=== PATIENT | female | born 1970 | race Caucasian/White ===

== ENCOUNTER 2021-06-01 13:53 | Emergency (ER) | payer OTHER ==
[~2021-06-01] VITALS: Ht 172.7 cm; Wt 103.9 kg
--- NOTE | 2021-06-01 13:53 | NUR ---
PT BIB SELF C/O LOWER BACK PAIN. PT IS AAOX4, NOT IN RESPIRATORY DISTRESS, V/S STABLE, KEPT RESTED AND COMFORTABLE. WILL CONTINUE TO MONITOR.
--- NOTE | 2021-06-01 14:14 | NUR ---
AT BEDSIDE FOR EVAL.
--- NOTE | 2021-06-01 14:30 | NUR ---
URINE SPECIMEN COLLECTED AND SENT TO LAB.
--- NOTE | 2021-06-01 14:35 | NUR ---
PT IV LINE ESTABLISHED BLOOD DRAWN AND SENT TO LAB.
[2021-06-01 14:47] LABS: BASOPHILS # (AUTO) 0.1 K/uL (0.0-0.2); BASOPHILS % (AUTO) 1.1 % (0.0-2.0); EOSINOPHILS % (AUTO) 1.1 % (0.0-6.0); HEMATOCRIT 38 % (33-45); HEMOGLOBIN 12.8 g/dL (11.5-14.8); LYMPHOCYTES # (AUTO) 1.8 K/uL (0.8-4.8); LYMPHOCYTES % (AUTO) 27.8 % (20.0-44.0); MEAN CORPUSCULAR HGB CONC 34 g/dl (31.0-36.0); MEAN CORPUSCULAR VOLUME 94 fL (82-100); MONOCYTES # (AUTO) 0.5 K/uL (0.1-1.30); MONOCYTES % (AUTO) 7.1 % (2.0-12.0); NEUTROPHILS # (AUTO) 4.1 K/uL (1.8-8.9); NEUTROPHILS % (AUTO) 62.9 % (43.0-81.0); PLATELET COUNT (AUTO) 299 K/uL (150-450); RED BLOOD CELL COUNT(AUTO) 4.02 MIL/uL (4.0-5.2); WHITE BLOOD COUNT (AUTO) 6.5 K/uL (4.3-11.0)
[2021-06-01 14:53] LABS: BILIRUBIN,URINE NEGATIVE (NEGATIVE); COLOR,URINE YELLOW (YELLOW); LEUKOCYTE ESTERASE ,URINE NEGATIVE (NEGATIVE); NITRITE, URINE NEGATIVE (NEGATIVE); PH,URINE 5.5 (5.0-8.0); PROTEIN,URINE NEGATIVE (NEGATIVE); UGLUCOSE NEGATIVE (NEGATIVE); UROBILINOGEN,URINE 0.2 EU/dL (0.2)
[2021-06-01 15:07] LABS: BACTERIA,URINE 1+ /HPF (None Seen)
[2021-06-01 15:15] LABS: CALCIUM, SERUM 8.3 mg/dL (8.5-10.1); POTASSIUM 3.8 mmol/L (3.5-5.1)
[2021-06-01 15:21] LABS: ALBUMIN 3.8 g/dL (3.4-5.0); BILIRUBIN,DIRECT 0.1 mg/dL (0.0-0.2); BILIRUBIN,TOTAL 0.4 mg/dL (0.2-1.0); TOTAL PROTEIN, SERUM 7.1 g/dL (6.4-8.2)
[2021-06-01] MEDS ORDERED: KETOROLAC TROMETHAMINE 15 MG/ML VIAL ONE (15:38)
[2021-06-01] MEDS ORDERED: KETOROLAC TROMETHAMINE INJ 30 MG/ML VIAL IV ONE (16:00)
[2021-06-01] MEDS ORDERED: IBUP-1955 PO (16:18)
[2021-06-01] MEDS ORDERED: HYDR-3972 PO (16:21)
--- NOTE | 2021-06-01 16:43 | NUR ---
Patient discharged to home in stable condition. Written and verbal after care instructions given. Patient verbalizes understanding of instruction.IV removed. Catheter intact and site benign. Pressure and 4x4 applied to site. No bleeding noted.
[2021-06-01 16:44] VITALS: BP 134/88
== END 2021-06-01 16:44 | disposition home or self-care (01) ==
LOC: ER 13:53
DX: G89.29 Other chronic pain (principal); M54.5 Low back pain; I10 Essential (primary) hypertension; Z90.89 Acquired absence of other organs; Z98.890 Other specified postprocedural states
CPT/HCPCS: 36415; 72110; 80048; 80076; 81001; 84702; 84703; 85025; 96374; 99284; J1885

== ENCOUNTER 2022-01-03 13:49 | Emergency (ER) | payer OTHER ==
[~2022-01-03] VITALS: Ht 172.7 cm; Wt 87.1 kg
[~2022-01-03 13:49] MED LIST: HYDR-3972 PO; IBUP-1955 PO
--- NOTE | 2022-01-03 13:56 | NUR ---
BIBSELF C/O RLE PAIN x 2WEEKS, WORST TODAY. TO ER BED 1, CHANGED TO HOSP GOWN, HOOKED TO MONITOR. AWAITING MD MCDONALD
[2022-01-03] MEDS ORDERED: METO25TA3 PO (14:09)
[2022-01-03] MEDS ORDERED: LOSA1TAB39 PO (14:09)
--- NOTE | 2022-01-03 14:12 | NUR ---
DR MURDOCK AT BEDSIDE
--- NOTE | 2022-01-03 14:33 | NUR ---
[place] AT BEDSIDE
--- NOTE | 2022-01-03 14:50 | NUR ---
PHLEB AT BEDSIDE
[2022-01-03 15:05] LABS: BASOPHILS # (AUTO) 0.1 K/uL (0.0-0.2); BASOPHILS % (AUTO) 1.1 % (0.0-2.0); EOSINOPHILS % (AUTO) 2.7 % (0.0-6.0); HEMATOCRIT 38 % (33-45); HEMOGLOBIN 12.9 g/dL (11.5-14.8); LYMPHOCYTES # (AUTO) 1.8 K/uL (0.8-4.8); LYMPHOCYTES % (AUTO) 33.4 % (20.0-44.0); MEAN CORPUSCULAR HGB CONC 34 g/dl (31.0-36.0); MEAN CORPUSCULAR VOLUME 90 fL (82-100); MONOCYTES # (AUTO) 0.4 K/uL (0.1-1.30); MONOCYTES % (AUTO) 6.7 % (2.0-12.0); NEUTROPHILS % (AUTO) 56.1 % (43.0-81.0); PLATELET COUNT (AUTO) 333 K/uL (150-450); RED BLOOD CELL COUNT(AUTO) 4.21 MIL/uL (4.0-5.2); WHITE BLOOD COUNT (AUTO) 5.4 K/uL (4.3-11.0)
[2022-01-03 15:20] LABS: CALCIUM, SERUM 9.3 mg/dL (8.5-10.1); CREATININE 0.8 mg/dL (0.6-1.3); POTASSIUM 3.5 mmol/L (3.5-5.1)
--- NOTE | 2022-01-03 16:04 | NUR ---
[employer] AT BEDSIDE
[2022-01-03] MEDS ORDERED: CEPH500C2 PO (16:56)
[2022-01-03] MEDS ORDERED: IBUPROFEN 400 MG TABLET ONE (17:14)
--- NOTE | 2022-01-03 17:22 | NUR ---
Patient discharged to home in stable condition. Written and verbal after care instructions given. Patient verbalizes understanding of instruction.
[2022-01-03 17:23] VITALS: BP 161/97
[2022-01-03] MEDS ORDERED: IBUPROFEN 400 MG TABLET PO ONE (17:30)
== END 2022-01-03 17:23 | disposition home or self-care (01) ==
LOC: ER 13:53
DX: L03.115 Cellulitis of right lower limb (principal); M79.604 Pain in right leg; I10 Essential (primary) hypertension; Z79.899 Other long term (current) drug therapy
CPT/HCPCS: 36415; 73590-TC; 73610-TC; 80048-TC; 85025-TC; 85730-TC; 93926-TC; 93971-TC

== ENCOUNTER 2022-06-03 10:04 | Emergency (ER) | payer OTHER ==
[~2022-06-03] VITALS: Ht 172.7 cm; Wt 74.8 kg
[~2022-06-03 10:04] MED LIST changes: +CEPH500C2 PO; -HYDR-3972 PO; -IBUP-1955 PO; +LOSA1TAB39 PO; +METO25TA3 PO
--- NOTE | 2022-06-03 10:19 | NUR ---
To ER bed 16, "Having Vaginal Bleeding x2wks called my MD was told to come here", aaox3, breathing even and non labored, connected to monitor, changed into and gown, awaiting md preciado
--- NOTE | 2022-06-03 10:45 | NUR ---
SALINE LOCK ESTABLISHED, BLOOD DRAWN AND SENT TO LAB
[2022-06-03 11:01] LABS: BASOPHILS # (AUTO) 0.1 K/uL (0.0-0.2); BASOPHILS % (AUTO) 1.1 % (0.0-2.0); EOSINOPHILS % (AUTO) 2.1 % (0.0-6.0); HEMATOCRIT 37 % (33-45); HEMOGLOBIN 12.5 g/dL (11.5-14.8); LYMPHOCYTES # (AUTO) 1.8 K/uL (0.8-4.8); LYMPHOCYTES % (AUTO) 27.8 % (20.0-44.0); MEAN CORPUSCULAR HGB CONC 34 g/dl (31.0-36.0); MEAN CORPUSCULAR VOLUME 90 fL (82-100); MONOCYTES # (AUTO) 0.5 K/uL (0.1-1.30); NEUTROPHILS # (AUTO) 3.9 K/uL (1.8-8.9); PLATELET COUNT (AUTO) 320 K/uL (150-450); RED BLOOD CELL COUNT(AUTO) 4.12 MIL/uL (4.0-5.2); WHITE BLOOD COUNT (AUTO) 6.5 K/uL (4.3-11.0)
--- NOTE | 2022-06-03 11:06 | NUR ---
US at bedside
[2022-06-03 11:13] LABS: CALCIUM, SERUM 8.9 mg/dL (8.5-10.1); CREATININE 0.8 mg/dL (0.6-1.3); POTASSIUM 3.9 mmol/L (3.5-5.1)
[2022-06-03 11:16] LABS: BILIRUBIN,URINE NEGATIVE (NEGATIVE); COLOR,URINE YELLOW (YELLOW); LEUKOCYTE ESTERASE ,URINE NEGATIVE (NEGATIVE); NITRITE, URINE NEGATIVE (NEGATIVE); PH,URINE 6.5 (5.0-8.0); PROTEIN,URINE NEGATIVE (NEGATIVE); UGLUCOSE NEGATIVE (NEGATIVE); UROBILINOGEN,URINE 0.2 EU/dL (0.2)
[2022-06-03 11:19] LABS: ALBUMIN 3.9 g/dL (3.4-5.0); BILIRUBIN,DIRECT 0.1 mg/dL (0.0-0.2); BILIRUBIN,TOTAL 0.6 mg/dL (0.2-1.0); TOTAL PROTEIN, SERUM 7.4 g/dL (6.4-8.2)
[2022-06-03 11:26] LABS: BACTERIA,URINE Rare /HPF (None Seen); RBC,URINE 0-2 /HPF (0-2); SQUAMOUS EPITHELIAL CELL,UR Few /HPF (None Seen); WBC,URINE 0-2 /HPF (0-3)
--- NOTE | 2022-06-03 12:07 | NUR ---
IV removed. Catheter intact and site benign. Pressure and 4x4 applied to site. No bleeding noted.Patient discharged to home in stable condition. Written and verbal after care instructions given. Patient verbalizes understanding of instruction.
[2022-06-03 12:08] VITALS: BP 124/63
== END 2022-06-03 12:08 | disposition home or self-care (01) ==
LOC: ER 10:12
DX: N93.8 Other specified abnormal uterine and vaginal bleeding (principal); D25.9 Leiomyoma of uterus, unspecified; I10 Essential (primary) hypertension; Z79.899 Other long term (current) drug therapy
CPT/HCPCS: 36415; 76856-TC; 80048-TC; 80076-TC; 81001; 84702-TC; 85025-TC; 85730-TC; 86850-TC

== ENCOUNTER 2022-12-13 14:03 | Emergency (ER) | payer OTHER ==
[~2022-12-13] VITALS: Ht 172.7 cm; Wt 81.6 kg
--- NOTE | 2022-12-13 14:20 | NUR ---
52 yrs female c/o V.B FOR 2 WEEK LIGHT V.B ABDOMIN SOFT NONE TENDER
--- NOTE | 2022-12-13 14:25 | NUR ---
SEEN BY DR. MUSTAFA AT BED SIDE
--- NOTE | 2022-12-13 14:46 | NUR ---
URINE SAMPLE OBTAINED SENT TO LAB
--- NOTE | 2022-12-13 15:01 | NUR ---
BLOOD SAMPLES TAKEN AND SENT TO LAB
[2022-12-13 15:25] LABS: BASOPHILS % (AUTO) 0.5 % (0.0-2.0); EOSINOPHILS % (AUTO) 1.7 % (0.0-6.0); HEMATOCRIT 35 % (33-45); HEMOGLOBIN 11.4 g/dL (11.5-14.8); LYMPHOCYTES # (AUTO) 1.6 K/uL (0.8-4.8); LYMPHOCYTES % (AUTO) 28.6 % (20.0-44.0); MEAN CORPUSCULAR HGB CONC 33 g/dl (31.0-36.0); MEAN CORPUSCULAR VOLUME 90 fL (82-100); MONOCYTES # (AUTO) 0.4 K/uL (0.1-1.30); MONOCYTES % (AUTO) 6.7 % (2.0-12.0); NEUTROPHILS # (AUTO) 3.5 K/uL (1.8-8.9); NEUTROPHILS % (AUTO) 62.5 % (43.0-81.0); PLATELET COUNT (AUTO) 297 K/uL (150-450); RED BLOOD CELL COUNT(AUTO) 3.91 MIL/uL (4.0-5.2); WHITE BLOOD COUNT (AUTO) 5.7 K/uL (4.3-11.0)
[2022-12-13 15:53] LABS: CALCIUM, SERUM 8.6 mg/dL (8.5-10.1); POTASSIUM 3.7 mmol/L (3.5-5.1)
[2022-12-13 16:14] LABS: BILIRUBIN,URINE NEGATIVE (NEGATIVE); COLOR,URINE YELLOW (YELLOW); LEUKOCYTE ESTERASE ,URINE 1+ (NEGATIVE); NITRITE, URINE NEGATIVE (NEGATIVE); PROTEIN,URINE 1+ mg/dl (NEGATIVE); UGLUCOSE NEGATIVE (NEGATIVE); UROBILINOGEN,URINE 0.2 EU/dL (0.2)
[2022-12-13 16:22] LABS: BACTERIA,URINE 2+ /HPF (None Seen); RBC,URINE 81-100 /HPF (0-2); WBC,URINE 21-50 /HPF (0-3)
--- NOTE | 2022-12-13 16:45 | NUR ---
DR. MUSTAFA AT BED SIDE Spook with pt
[2022-12-13] MEDS ORDERED: CEPHALEXIN MONOHYDRATE 500 MG CAPSULE PO ONE ×2 (17:00→17:01)
[2022-12-13] MEDS ORDERED: CEPH500C2 PO (17:01)
[2022-12-13] MEDS ORDERED: MEDR10TA73 PO (17:02)
[2022-12-13] MEDS ORDERED: IBUP-1955 PO (17:02)
--- NOTE | 2022-12-13 17:05 | NUR ---
Patient discharged to home in stable condition. Written and verbal after care instructions given. Patient verbalizes understanding of instruction.
[2022-12-13 17:10] VITALS: BP 143/90
== END 2022-12-13 17:11 | disposition home or self-care (01) ==
LOC: ER 14:03
DX: N39.0 Urinary tract infection, site not specified (principal); N93.9 Abnormal uterine and vaginal bleeding, unspecified; D25.9 Leiomyoma of uterus, unspecified; N85.8 Other specified noninflammatory disorders of uterus; I10 Essential (primary) hypertension; Z79.899 Other long term (current) drug therapy
CPT/HCPCS: 36415; 76856-TC; 80048-TC; 81001; 84703-TC; 85025-TC; 85730-TC; 87086-TC

== ENCOUNTER 2024-07-03 09:38 | Emergency (ER) | payer OTHER ==
[~2024-07-03] VITALS: Ht 172.7 cm; Wt 77.1 kg
[~2024-07-03 09:38] MED LIST changes: +IBUP-1955 PO; +MEDR10TA73 PO
[2024-07-03 09:47] VITALS: TEMP 97.9
--- NOTE | 2024-07-03 09:50 | NUR ---
"I SEE BLACK SPOTS" IN RIGHT EYE SINCE YESTERDAY
--- NOTE | 2024-07-03 09:59 | NUR ---
FOLLOW UP VISUAL ACUITY RESULT PLAN FOR [facility] REFERRAL ONCE DISCHARGED PT COND STABLE / NON URGENT
[2024-07-03] MEDS ORDERED: TETRAcaine 5 ML BOTTLE ONE (10:00)
[2024-07-03] MEDS: TETRACAINE HCL 0.5% OPHTALMIC 15 ML BOTTLE OP ONE (10:27)
[2024-07-03 11:16] VITALS: BP 132/84; O2SAT 98
--- NOTE | 2024-07-03 11:16 | NUR ---
Patient discharged to home in stable condition. Written and verbal after care instructions given. Patient verbalizes understanding of instruction.
== END 2024-07-03 11:17 | disposition home or self-care (01) ==
LOC: ER 09:44
DX: H43.391 Other vitreous opacities, right eye (principal); I10 Essential (primary) hypertension; Z87.448 Personal history of other diseases of urinary system; Z87.42 Personal history of other diseases of the female genital tract

== ENCOUNTER 2025-07-24 11:57 | Emergency (ER) | payer OTHER ==
[~2025-07-24] VITALS: Ht 172.7 cm; Wt 65.8 kg
[2025-07-24 12:23] VITALS: TEMP 98
[2025-07-24 13:07] LABS: PLATELET COUNT (AUTO) 325 K/uL (150-450); RED BLOOD CELL COUNT(AUTO) 4.33 MIL/uL (4.0-5.2); RED CELL DISTRIBUTION WIDTH 13.0 % (11.5-15.0); WHITE BLOOD COUNT (AUTO) 5.1 K/uL (4.3-11.0)
[2025-07-24] MEDS ORDERED: LORAZEPAM 1 MG TABLET ONE (13:15)
[2025-07-24] MEDS: LORAZEPAM 1 MG TABLET PO ONE (13:18)
[2025-07-24 13:22] LABS: CALCIUM, SERUM 8.8 mg/dL (8.5-10.1); CREATININE 0.9 mg/dL (0.6-1.3); SODIUM SERUM 141 mmol/L (136-145); UREA NITROGEN, BLOOD 14 mg/dL (7-18)
[2025-07-24 13:35] LABS: NT-PRO BNP 71 pg/mL (0-125)
[2025-07-24 14:54] VITALS: BP 142/88; O2SAT 98
== END 2025-07-24 14:10 | disposition home or self-care (01) ==
LOC: ER 12:20
DX: F41.1 Generalized anxiety disorder (principal); R20.2 Paresthesia of skin; R07.9 Chest pain, unspecified; R06.02 Shortness of breath; R00.2 Palpitations; R06.4 Hyperventilation; E78.5 Hyperlipidemia, unspecified; I11.0 Hypertensive heart disease with heart failure; I50.9 Heart failure, unspecified; Z79.1 Long term (current) use of non-steroidal anti-inflammatories (NSAID); Z79.3 Long term (current) use of hormonal contraceptives; Z79.899 Other long term (current) drug therapy; Z86.018 Personal history of other benign neoplasm
CPT/HCPCS: 36415; 71045-TC; 80048-TC; 83880; 84484-TC; 85025-TC

== ENCOUNTER 2025-09-06 19:01 | Emergency (ER) | payer OTHER ==
[~2025-09-06] VITALS: Ht 172.7 cm; Wt 74.8 kg
[2025-09-06] MEDS ORDERED: ACETAMINOPHEN ES 500 MG TABLET ONE (20:31)
[2025-09-06] MEDS ORDERED: METHOCARBAMOL (500MG) 500 MG TABLET ONE (20:32)
[2025-09-06] MEDS: METHOCARBAMOL (750MG) 750 MG TABLET PO STA (20:35)
[2025-09-06] MEDS: ACETAMINOPHEN ES 500 MG TABLET PO ONE (20:35)
[2025-09-06] MEDS ORDERED: IOHEXOL-300 100 ML VIAL IV ONE (20:51)
[2025-09-06] MEDS ORDERED: IV NS 0.9% 250 ML IV ONE (20:51)
[2025-09-06 20:55] LABS: PREGNANCY TEST URINE QUAL NEGATIVE (NEGATIVE)
[2025-09-06] MEDS ORDERED: METH-649 PO (21:32)
[2025-09-06] MEDS ORDERED: IBUP-1490 PO (21:32)
[2025-09-06] MEDS ORDERED: ACET-2030 PO (21:32)
[2025-09-06 21:33] LABS: PLATELET COUNT (AUTO) 324 K/uL (150-450); RED BLOOD CELL COUNT(AUTO) 4.47 MIL/uL (4.0-5.2); RED CELL DISTRIBUTION WIDTH 13.2 % (11.5-15.0); WHITE BLOOD COUNT (AUTO) 7.1 K/uL (4.3-11.0)
[2025-09-06 21:40] LABS: CALCIUM, SERUM 8.9 mg/dL (8.5-10.1); CREATININE 0.8 mg/dL (0.6-1.3); SODIUM SERUM 139.0 mmol/L (136-145); UREA NITROGEN, BLOOD 18.0 mg/dL (7-18)
[2025-09-06 21:45] LABS: ASPARTATE AMINOTRANSFERASE 16.0 U/L (15-37); TOTAL PROTEIN, SERUM 7.6 g/dL (6.4-8.2)
[2025-09-06 21:48] LABS: INR 1.02 (0.91-1.10)
[2025-09-06 23:17] VITALS: BP 167/92; TEMP 97.8; O2SAT 98
== END 2025-09-06 23:17 | disposition home or self-care (01) ==
LOC: ER 19:04
DX: M62.838 Other muscle spasm (principal); I11.9 Hypertensive heart disease without heart failure; R10.20 Pelvic and perineal pain unspecified side; Z86.018 Personal history of other benign neoplasm; Z79.899 Other long term (current) drug therapy; Z79.3 Long term (current) use of hormonal contraceptives; Z79.1 Long term (current) use of non-steroidal anti-inflammatories (NSAID); V43.52XA Car driver injured in collision with other type car in traffic accident, initial encounter; Y93.89 Activity, other specified; Y92.410 Unspecified street and highway as the place of occurrence of the external cause; Y99.8 Other external cause status
CPT/HCPCS: 99285; 72125; 71260; 70450; 74177; 85025; 80048; 80076; 84703; 36415; 85730; L0172; J7050; Q9967